=== PATIENT | male | born 1990 | race Caucasian/White ===

== ENCOUNTER 2024-08-17 13:40 | Emergency (ER) | payer BC ==
[~2024-08-17] VITALS: Ht 172.7 cm; Wt 63.4 kg
[2024-08-17 13:44] VITALS: BP 129/91; PULSE 84; RESP 15; TEMP 98.3; O2SAT 100
--- NOTE | 2024-08-17 15:22 | Physician Documentation ---
History of Present Illness ~ Chief Complaint: Suicidal Ideation Stated Complaint: MENTAL HEALTH EVAL Time Seen by MD: 13:59 HPI This pleasant 34-year-old male presents to the ED with concerns over alcohol use disorder and SI intentions today. Patient acknowledges that he was in an a heated argument with his grabbed a handgun kept it at his side in and made a remark about "just saving everyone the trouble and ending it all Patient states that he was not drinking alcohol today. However family states that he acted like he had been drinking alcohol also reported smelling like alcohol Patient is an excellent historian works as a welder gas tungsten arc and realizes he has not alcohol problem. He has tried naltrexone and gabapentin but said they did not work for him. The patient also lost his best friend in March this year which has been an ongoing struggle for him. He adds that he has some family issues including a very controlling mother which he believes has contributed to some development of his addiction. Family states that they have to monitor the patient to prevent him from driving drunk with children or drinking excessively. He has been ongoing tension point for the family and the patient. He denies having any psychiatric diagnosis is however he does take Lexapro for depression Day of Onset: Aug 17, 2024 Review of Systems All Other Systems at this time: Reviewed and Negative ROS As stated above in the HPI, otherwise all systems are reviewed and negative. Physical Exam Vital Signs: Temperature: 98.3, Source: Temporal, Heart Rate: 84, Respiratory Rate: 15, BP: 129/91, Pulse Oximetry: 100, Weight: 63.400 Physical Exam General: Alert, no apparent distress. Neurologic: Oriented x4. Psychiatric: Normal mood and affect. Appropriate to situation Skin: Normal color, warm and dry. No edema, no ecchymosis. Progress Results/Orders Results/Orders Orders - SANTHOSH SANCHEZ STEEL [employer]AR OPERATOR Urinalysis (08/17/24 14:52) Drug Screen, Urine (08/17/24 14:52) Med Rec (08/17/24 14:52) 1799.11 (08/17/24 14:52) Close Observation Level (08/17/24 14:52) Covid19 Binax Poc Result Entry (08/17/24 14:52) Substance Use Navigator (08/17/24 14:52) Regular Diet (08/17/24 Dinner) Completed Orders - SANTHOSH SANCHEZ [employer] OPERATOR Cbc/Diff (08/17/24 14:52) Ethanol (08/17/24 14:52) TSH (08/17/24 14:52) BMP (08/17/24 14:52) Vital Signs 08/17/24 13:44 Temp 98.3 Pulse 84 Resp 15 B/P (MAP) 129/91 Pulse Ox 100 Laboratory Tests Test 08/17/24 13:15 08/17/24 16:00 White Blood Count 5.6 Red Blood Count 5.11 Hemoglobin 16.6 Hematocrit 47.5 Mean Corpuscular Volume 92.9 Mean Corpuscular Hemoglobin 32.4 H Mean Corpuscular Hemoglobin Concent 34.9 Red Cell Distribution Width 12.1 Platelet Count 318 Mean Platelet Volume 7.2 L Neutrophils (%) (Auto) 55.7 Lymphocytes (%) (Auto) 33.2 Monocytes (%) (Auto) 9.1 Eosinophils (%) (Auto) 1.6 Basophils (%) (Auto) 0.4 Neutrophils # (Auto) 3.1 Lymphocytes # (Auto) 1.9 Monocytes # (Auto) 0.5 Eosinophils # (Auto) 0.1 Basophils # (Auto) 0.0 CBC Comment Sodium Level 143 Potassium Level 3.9 Chloride Level 102 Carbon Dioxide Level 30.1 Anion Gap 11 Blood Urea Nitrogen 7 Creatinine 1.05 Estimated GFR/1.73 m2 81 BUN/Creatinine Ratio 6.7 L Glucose Level 101 Calcium Level 9.0 Albumin 4.5 Thyroid Stimulating Hormone (TSH) 0.84 Chemistry Comments Ethyl Alcohol Level 193 H Urine Comment Drug Screen Comment Medical Decision Making Findings Discussed at length with the patient how his attitude must change in order to overcome his alcohol addiction. I also spent a great deal of time explained to the family that codependent patent behavior we will not assist the patient in overcoming his addiction. Discussed the surrounding issues around the issue today that led him to make the poor decision of incident awaiting to take his life with a gun. Patient is adamant that he has never had any self-harm and other than having depression, he does not have any psychiatric illnesses. He does report difficulty managing stress he does acknowledge using alcohol to manage stress. Also uses marijuana gummies at times. States he has current difficulties in his marriage in his family is concerned about his alcohol alcoholism secondary to his family life and potential poor outcomes of his children During to the cage questions he he came back positive for all four questions indicating a concerning clinically significance for AUD Use of the substance abuse coordinator family the patient myself we came up with a solid safety plan and a pathway for recovery. Differential Dx:Considerations: Include: Alcohol abuse, Anxiety, Bipolar disorder, Conversion disorder, Depression, Encephaloathy, Homicidal, Panic disorder, Personality disorder, Schizophrenia, Substance abuse, Suicidal, Other Departure Disposition: 01 HOME / SELF CARE / HOMELESS Impression: Primary Impression: Depression Additional Impressions: Alcohol use disorder Alcohol use disorder, moderate, dependence Condition: Improved Discharge Instructions: Alcohol Abuse and Dependence Information, Adult, Alcohol Intoxication, [id number] Additional Instructions: As directed follow up with alcohol recovery program that we referred you to. Take the Librium over the next 4-5 days to help get through any alcohol withdrawal symptoms you may experience. Good luck to you Referrals: NO PRIMARY CARE PROVIDER (PCP) Prescriptions Chlordiazepoxide Hcl (Librium) 25 Mg Capsule 1 CAP PO TID PRN for alcohol withdrawal for 4 Days, #4 CAP 0 Refills Prov: SANTHOSH SANCHEZ NP 08/17/24 Education Educated: Patient Educated regarding: diagnosis Signature Scribe Signature: t Attestation: The note accurately reflects work and decisions made by me.Santhosh Fisher NP 08/17/24 15:22 SANTHOSH SANCHEZ NP Aug 17, 2024 15:22
[2024-08-17 15:30] LABS: BASOPHILS % (AUTO) 0.4 % (0-1); EOSINOPHILS # (AUTO) 0.1 X10'3 (0-0.9); EOSINOPHILS % (AUTO) 1.6 % (0-6); HEMATOCRIT 47.5 % (42.0-52.0); HEMOGLOBIN 16.6 g/dl (14.0-17.9); LYMPHOCYTES # (AUTO) 1.9 X10'3 (1.1-4.8); LYMPHOCYTES % (AUTO) 33.2 % (21-51); MEAN CORPUSCULAR HEMOGLOBIN 32.4 PG (27.0-31.0); MEAN CORPUSCULAR HGB CONC 34.9 g/dL (33.0-36.5); MEAN CORPUSCULAR VOLUME 92.9 FL (78-98); MEAN PLATELET VOLUME 7.2 FL (7.4-10.4); MONOCYTES # (AUTO) 0.5 X10'3 (0-0.9); MONOCYTES % (AUTO) 9.1 % (2-12); NEUTROPHILS # (AUTO) 3.1 X10'3 (1.8-7.7); NEUTROPHILS % (AUTO) 55.7 % (42-75); PLATELET COUNT 318 X10'3 (140-440); RED BLOOD COUNT 5.11 X10'6 (4.70-6.10); RED CELL DISTRIBUTION WIDTH 12.1 % (11.5-14.5); WHITE BLOOD COUNT 5.6 X10'3 (4.5-11.0)
[2024-08-17 15:44] LABS: ALBUMIN 4.5 G/DL (3.4-5.0); ANION GAP 11 (8-16); BLOOD UREA NITROGEN 7 MG/DL (7-18); BUN/CREATININE RATIO 6.7 (10.0-20.0); CHLORIDE 102 MMOL/L (99-107); CREATININE 1.05 MG/DL (0.60-1.10); ETHANOL 193 MG/DL (<10); GLUCOSE 101 MG/DL (70-104); POTASSIUM 3.9 MMOL/L (3.5-5.1); SODIUM 143 MMOL/L (135-145); THYROID STIMULATING HORMONE 0.84 ulU/ml (0.34-4.50); TOTAL CARBON DIOXIDE 30.1 MMOL/L (24-32); eCRCL 90 ML/MIN; eGFR 81 ML/MIN
[2024-08-17] MEDS ORDERED: CHLO25CA10 PO (16:13)
[2024-08-17 16:18] LABS: BILIRUBIN,URINE NEGATIVE (Neg); CLARITY,URINE CLEAR (Clear); COLOR,URINE STRAW (Yellow); GLUCOSE, URINE NEGATIVE (Neg); KETONES,URINE NEGATIVE (Neg); LEUKOCYTE ESTERASE ,URINE NEGATIVE (Neg); NITRITES, URINE NEGATIVE (Neg); OCCULT BLOOD,URINE NEGATIVE (Neg); PROTEIN,URINE NEGATIVE (Neg); UROBILINOGEN,URINE 0.2 E.U/dL (0.2-1.0)
[2024-08-17 16:22] LABS: UA COLLECTION TYPE CLN CATCH MIDSTREAM
[2024-08-17 16:48] LABS: URINE AMPHETAMINE SCREEN NEGATIVE (Neg); URINE BARBITUATE SCREEN NEGATIVE (Neg); URINE BENZODIAZEPINES SCREEN NEGATIVE (Neg); URINE CANNABINOID SCREEN POSITIVE (Neg); URINE COCAINE SCREEN NEGATIVE (Neg); URINE METHADONE SCREEN NEGATIVE (Neg); URINE OPIATE SCREEN NEGATIVE (Neg); URINE PHENCYCLIDINE SCREEN NEGATIVE (Neg)
== END 2024-08-17 16:54 | disposition home or self-care (01) ==
LOC: ER 13:42
DX: F32.A Depression, unspecified (principal); F10.20 Alcohol dependence, uncomplicated; Z20.822 Contact with and (suspected) exposure to COVID-19; Y90.6 Blood alcohol level of 120-199 mg/100 ml
CPT/HCPCS: 36415; 80048; 80305; 80320; 81003; 84443; 85025; 99284

== ENCOUNTER 2024-11-11 17:34 | Emergency (ER) | payer BC ==
[~2024-11-11] VITALS: Ht 172.7 cm; Wt 73.2 kg
[~2024-11-11 17:34] MED LIST: CHLO25CA10 PO
[2024-11-11 17:39] VITALS: BP 120/86; PULSE 78; RESP 18; TEMP 97.7; O2SAT 97
[2024-11-11 18:16] LABS: MEAN PLATELET VOLUME 7.2 FL (7.4-10.4); RED CELL DISTRIBUTION WIDTH 13.2 % (11.5-14.5)
[2024-11-11 18:41] LABS: CREATININE 1.00 MG/DL (0.60-1.10); TOTAL CARBON DIOXIDE 25.1 MMOL/L (24-32); eCRCL 102 ML/MIN; eGFR 86 ML/MIN
[2024-11-11 19:41] LABS: PLATELET ESTIMATE NORMAL
[2024-11-11 19:56] LABS: ETHANOL 342 MG/DL (<10)
--- NOTE | 2024-11-11 20:03 | Physician Documentation ---
History of Present Illness ~ Chief Complaint: ETOH Stated Complaint: [facility] This is a 34-year-old male who is brought in by his father due to patient being intoxicated, patient's father skin is concerned about patient is drinking, patient reports that he has seeking help to stop drinking. Patient reports no HI or SI. Tetanus within 5 years?: No Medication Reconciliation Allergies: Coded Allergies: No Known Allergies (Unverified , 11/11/24) Scheduled PRN Chlordiazepoxide Hcl (Librium), 1 CAP PO TID PRN for alcohol withdrawal Past Medical History Past Medical History: No Pertinent History Review of Systems ROS As stated above in the HPI, otherwise all systems are reviewed and negative. Physical Exam Vital Signs: Temperature: 97.7, Source: Temporal, Heart Rate: 78, Respiratory Rate: 18, BP: 120/86, Pulse Oximetry: 97, Weight: 73.150 Oxygen Flow Rate: 0 Physical Exam VITALS: Reviewed and as above. GENERAL: Alert, nontoxic appearing, no apparent distress. RESPIRATORY: No increased work of breathing, no respiratory distress, speaking in full clear sentences NEURO: No tremor PSYCH: Stating no HI or SI Progress Progress Note Per report from nursing patient is advised that he does not want to be seen in the emergency department for alcohol use. Results/Orders Results/Orders Vital Signs 11/11/24 17:39 Temp 97.7 Pulse 78 Resp 18 B/P (MAP) 120/86 Pulse Ox 97 O2 Flow Rate 0 Laboratory Tests Test 11/11/24 17:58 White Blood Count 6.2 Red Blood Count 5.52 Hemoglobin 18.6 *H Hematocrit 52.2 H Mean Corpuscular Volume 94.5 Mean Corpuscular Hemoglobin 33.8 H Mean Corpuscular Hemoglobin Concent 35.7 Red Cell Distribution Width 13.2 Platelet Count 275 Mean Platelet Volume 7.2 L Neutrophils (%) (Auto) 55.5 Lymphocytes (%) (Auto) 35.8 Monocytes (%) (Auto) 4.6 Eosinophils (%) (Auto) 3.5 Basophils (%) (Auto) 0.6 Neutrophils # (Auto) 3.4 Lymphocytes # (Auto) 2.2 Monocytes # (Auto) 0.3 Eosinophils # (Auto) 0.2 Basophils # (Auto) 0.0 CBC Comment Platelet Estimate Normal Red Blood Cell Morphology Perf Basophilic Stippling Anisocytosis Few Spherocytes Few Sodium Level 140 Potassium Level 3.8 Chloride Level 102 Carbon Dioxide Level 25.1 Anion Gap 13 Blood Urea Nitrogen 4 L Creatinine 1.00 Estimated GFR/1.73 m2 86 BUN/Creatinine Ratio 4.0 L Glucose Level 84 Calcium Level 8.9 Total Bilirubin 0.5 Aspartate Amino Transf (AST/SGOT) 23 Alanine Aminotransferase (ALT/SGPT) 30 Alkaline Phosphatase 93 Total Protein 8.2 Albumin 4.6 Globulin 3.6 Albumin/Globulin Ratio 1.3 Lipase 55 Chemistry Comments Ethyl Alcohol Level 342 H Medical Decision Making Findings MSE performed in triage and patient returned to ED lobby by nursing staff to await available ED room. Patient has a advised nursing staff that he does not want to be seen in the emergency department and who was brought in against as well by his parents, patient had reported no acute symptoms or concerns in triage. Patient appears to have eloped from lobby. Differential Dx:Considerations: Intoxication - ETOH, Intoxication - other drug, Sub. Abuse -continuous, Sub. Abuse-intermittent, Personality disorder, Confusion, Dehydration, Encephalopathy Departure Disposition: LEFT AWOL/ELOPED Impression: Primary Impression: Alcoholic intoxication Qualified Codes: F10.929 - Alcohol use, unspecified with intoxication, unspecified Referrals: NO PRIMARY CARE PROVIDER (PCP) Signature Scribe Signature: No Scribe Attestation: The note accurately reflects work and decisions made by me.DEMETRIS Kim 11/14/24 21:03 JESSIKA HAND Nov 11, 2024 20:03
== END 2024-11-11 20:33 | disposition left against medical advice (07) ==
LOC: ER 17:35
DX: F10.129 Alcohol abuse with intoxication, unspecified (principal); Y90.8 Blood alcohol level of 240 mg/100 ml or more; Z53.21 Procedure and treatment not carried out due to patient leaving prior to being seen by health care provider
CPT/HCPCS: 36415; 80053; 80320; 83690; 85008; 85025